=== PATIENT | female | born 1950 | race Two or more races ===

== ENCOUNTER → 2018-12-20 | Outpatient (CLI) | payer OTHER ==
--- NOTE | 2019-01-10 09:27 | Diagnostic Imaging Report ---
#[id number] - MGSCRBIL #BILATERAL DIGITAL SCREENING MAMMOGRAM WITH CAD: 12/20/2018 CLINICAL: Routine screening. No prior exams were available for comparison. Current study contains 6 films. The tissue of both breasts is heterogeneously dense. This may lower the sensitivity of mammography. Current study was also evaluated with a Computer Aided Detection (CAD) system. Benign appearing calcifications are noted bilaterally. There is a 2 cm density with an obscured margin in the right breast at 10 o'clock middle depth. There is a 1.6 cm density with an obscured margin in the left breast at 1 o'clock posterior depth. No other significant masses or calcifications are seen in either breast. IMPRESSION: INCOMPLETE: NEEDS ADDITIONAL IMAGING EVALUATION The 2 cm density in the right breast at 10 o'clock middle depth is indeterminate. Compression views as well as an ultrasound are recommended. The 1.6 cm density in the left breast at 1 o'clock posterior depth is indeterminate. Compression views as well as an ultrasound are recommended. The patient will be contacted by the Mammography Department to schedule this appointment. JUAN CARLOS KRAMER M.D. ct/penrad:01/06/2019 09:26:47 Grocery Clerk Stocking: Maribel REESE)(Krystyna), [facility] letter sent: Additional Imaging Needed Mammogram BI-RADS: 0 Indeterminate
== END ==
LOC: MAMMO 14:21
PROVIDERS: ATTEND Internal Medicine
DX: Z12.31 Encounter for screening mammogram for malignant neoplasm of breast (principal)
CPT/HCPCS: 77067

== ENCOUNTER → 2019-01-17 | Outpatient (CLI) | payer MEDICARE ==
--- NOTE | 2019-01-18 09:13 | Diagnostic Imaging Report ---
#[id number] - USBRELIMLT ULTRASOUND OF THE LEFT BREAST : 01/17/2019 Comparison is made to exams dated: 01/17/2019 mammogram and 12/20/2018 mammogram - [facility]. Real-time ultrasound was performed on the left breast. There is a 1.3 cm oval mass with a lobulated margin in the left breast at 2 o'clock middle depth. This correlates with mammography findings. IMPRESSION: SUSPICIOUS OF MALIGNANCY - FOLLOW-UP RECOMMENDED The oval mass in the left breast is at a low suspicion for malignancy. An ultrasound guided biopsy is recommended. A phone call was made to the physician. The findings and recommendations were discussed with the patient. JUAN CARLOS KRAMER M.D. ct/:01/17/2019 16:20:34 Airline Operations Agent: Maribel NICK(Musa)(Krystyna), [facility] letter sent: Biopsy Required Ultrasound BI-RADS: 4a Suspicious abnormality - low suspicion for malignancy
--- NOTE | 2019-01-18 09:13 | Diagnostic Imaging Report ---
#[id number] - MGDXBIL #BILATERAL DIGITAL DIAGNOSTIC MAMMOGRAM WITH SPOT COMPRESSION: 01/17/2019 Comparison is made to exam dated: 12/20/2018 mammogram - [facility]. Current study contains 6 films. The tissue of both breasts is heterogeneously dense. This may lower the sensitivity of mammography. Density on the right resolves on spot compression images. There is a 1.4 cm oval mass in the left breast at 2 o'clock posterior depth. This is seen in additional views. This correlates with ultrasound findings. No other significant masses, calcifications, or other findings are seen in either breast. IMPRESSION: SUSPICIOUS OF MALIGNANCY See the report for ultrasound performed the same day for additional details. The 1.4 cm oval mass in the left breast is at a low suspicion for malignancy. An ultrasound guided biopsy is recommended. A phone call was made to the physician. The findings and recommendations were discussed with the patient. The patient will be contacted by the Mammography Department to schedule this appointment. JUAN CARLOS KRAMER M.D. ct/:01/17/2019 15:27:58 Fancy Packer: Maribel NICK(Musa)(Krystyna), [facility] letter sent: Biopsy Required Mammogram BI-RADS: 4a Suspicious abnormality - low suspicion for malignancy
--- NOTE | 2019-01-18 09:13 | Diagnostic Imaging Report ---
#[id number] - USBRELIMRT ULTRASOUND OF THE RIGHT BREAST : 01/17/2019 Comparison is made to exams dated: 01/17/2019 mammogram and 12/20/2018 mammogram - [facility]. Real-time ultrasound was performed on the right breast. There are no solid or cystic masses identified in the right breast. IMPRESSION: BENIGN There is no sonographic evidence of malignancy. JUAN CARLOS KRAMER M.D. ct/penrad:01/17/2019 15:32:21 Import Manager: ANITA JOHNSON RDMS, [facility] Ultrasound BI-RADS: 2 Benign
== END ==
LOC: MAMMO 11:53
PROVIDERS: ATTEND Internal Medicine
DX: R92.2 Inconclusive mammogram (principal); N63.20 Unspecified lump in the left breast, unspecified quadrant; N63.10 Unspecified lump in the right breast, unspecified quadrant
CPT/HCPCS: 77066

== ENCOUNTER → 2019-01-24 | Outpatient (CLI) | payer MEDICARE ==
--- NOTE | 2019-01-25 08:43 | Diagnostic Imaging Report ---
#[id number] - MGDXLT #UNILATERAL LEFT DIGITAL DIAGNOSTIC MAMMOGRAM: 01/24/2019 Comparison is made to exams dated: 01/24/2019 ultrasound biopsy, 01/17/2019 ultrasound, 01/17/2019 mammogram and 12/20/2018 mammogram - [facility]. The tissue of the left breast is heterogeneously dense. This may lower the sensitivity of mammography. A clip is noted in the left breast at the biopsied mass. IMPRESSION: POST PROCEDURE MAMMOGRAM FOR MARKER PLACEMENT JUAN CARLOS KRAMER M.D. ct/penrad:01/24/2019 15:54:00 Quality Assurance Assessor: Maribel NICK(R)(M), [facility] Mammogram BI-RADS: Post-procedure mammogram for marker placement
--- NOTE | 2019-01-25 08:43 | Diagnostic Imaging Report ---
#[id number] - [id number] ULTRASOUND GUIDED BIOPSY LEFT BREAST WITH MARKING DEVICE INSERTED: 01/24/2019 PATIENT CONSENT: According to [facility] requirements, a time out was performed, correct site was localized and the patient was consented. Correlation is made to exams dated: 01/17/2019 ultrasound, 01/17/2019 mammogram and 12/20/2018 mammogram - [facility]. An ultrasound guided biopsy using real-time ultrasound was performed for the 1.2 cm oval mass located in the left breast at 2 o'clock posterior depth. This was described on the previous ultrasound report. The skin was prepped in the usual manner. Local anesthetic was administered to the access site. A small incision was made in the breast. A 14 gauge biopsy needle was placed adjacent to the abnormality under ultrasound guidance. Once the needle was documented to be in the correct location, three specimens were obtained using an Achieve automated firing device. A clip was inserted at the biopsy site. A skin closure strip was applied to the access site. Post procedure imaging demonstrates the clip at the targeted area. The specimens were sent to the laboratory for pathological analysis. IMPRESSION: ULTRASOUND GUIDED BIOPSY Ultrasound guided biopsy of the 1.2 cm mass in the left breast at 2 o'clock posterior depth was successful. Waiting for pathology results. A final report will be issued when these become available. JUAN CARLOS KRAMER M.D. ct/:01/24/2019 15:52:59 Senior Technical Project Manager: Maribel GRANT (R)), [facility] [id number]
== END ==
LOC: RAD 12:22
PROVIDERS: ATTEND Internal Medicine
DX: N63.20 Unspecified lump in the left breast, unspecified quadrant (principal)
CPT/HCPCS: 88305; A4648

== ENCOUNTER → 2020-05-09 | Outpatient (CLI) | payer MEDICARE | LOC: MAMMO 08:23 | PROVIDERS: ATTEND Internal Medicine | DX: Z12.31 Encounter for screening mammogram for malignant neoplasm of breast (principal) | CPT/HCPCS: 77067 ==

== ENCOUNTER → 2021-06-02 | Outpatient (CLI) | payer MEDICARE | LOC: MAMMO 08:36 | PROVIDERS: ATTEND Internal Medicine | DX: Z12.31 Encounter for screening mammogram for malignant neoplasm of breast (principal) | CPT/HCPCS: 77067 ==

== ENCOUNTER → 2022-06-15 | Outpatient (CLI) | payer MEDICARE | LOC: MAMMO 07:59 | PROVIDERS: ATTEND Internal Medicine | DX: Z12.31 Encounter for screening mammogram for malignant neoplasm of breast (principal) | CPT/HCPCS: 77067 ==

== ENCOUNTER → 2024-08-01 | Outpatient (REF) | payer MEDICARE | LOC: MAMMO 08:24 | PROVIDERS: ATTEND Internal Medicine | DX: Z12.31 Encounter for screening mammogram for malignant neoplasm of breast (principal) | CPT/HCPCS: 77067 ==